=== PATIENT | male | born 1985 | race Caucasian/White ===

== ENCOUNTER 2024-07-26 02:46 | Emergency (ER) | payer MEDICAID, SELFPAY ==
[2024-07-26 02:50] VITALS: BP 121/82; PULSE 110; TEMP 36.7; O2SAT 100; BMI 25.8
--- NOTE | 2024-07-26 03:01 | ED_ITS ---
HPI - Male Genitourinary General Chief complaint: Urogenital-Male Stated complaint: R TESTICLE SWOLLEN Time Seen by Provider: 07/26/24 02:55 Source: patient Mode of arrival: Wheelchair Limitations: no limitations History of Present Illness HPI Narrative: states past history of epididymitis. Presents with right tetes pain and swelling for 24 hours. states pain and swelling are worse. No fever, abdominal pain or na usea. No urinary symptoms Related Data Home Medications ?Medication ?Instructions ?Recorded ?Confirmed No Known Home Medications 07/26/24 07/26/24 Allergies Allergy/AdvReac Type Severity Reaction Status Date / Time No Known Drug Allergies Allergy Verified 07/26/24 03:01 Review of Systems ROS Status of ROS 10 or more systems reviewed and unremark able except as noted in history and below Exam Constitutional Vital Signs, click to edit/add: Last Vital Signs Temp 98.1 F 07/26/24 02:50 Pulse 110 H 07/26/24 02:50 Resp 18 07/26/24 02:50 BP 121/82 07/26/24 02:50 Pulse Ox 100 07/26/24 02:50 O2 Del Method Room Air 07/26/24 02:50 Common normals: no apparent distress, average body habitus, oriented x3, no limitations, healthy appearing, alert and well nourished [facility] Common normals: normocephalic and head/scalp atraumatic Respiratory Common normals: normal respiratory effort, no retractions, no use of accessory muscles and clear to auscultation bilaterally Cardio Common normals: regular rate, regular rhythm, S1 normal heart sound and S2 normal heart sound GI Common normals: Normal to inspection, nondistended, normoactive bowel sounds present, soft to palpation and non-tender Other: right tetes swollen and tender. Normal color Extremity Common normals: normal to inspection and full ROM Neuro Common normals: oriented x3, CN's II-XII intact bilaterally, moves all extremities, no focal motor deficits and no sensory deficits noted Psych Appearance: grossly normal Course Vital Signs Vital signs: Vital Signs Temperature 98.1 F 07/26/24 02:50 Pulse Rate 110 H 07/26/24 02:50 Respiratory Rate 18 07/26/24 02:50 Blood Pressure 121/82 07/26/24 02:50 Pulse Oximetry 100 07/26/24 02:50 Oxygen Delivery Method Room Air 07/26/24 02:50 Temperature 98.1 F 07/26/24 02:50 Pulse Rate 110 H 07/26/24 02:50 Respiratory Rate 18 07/26/24 02:50 Blood Pressure 121/82 07/26/24 02:50 Pulse Oximetry 100 07/26/24 02:50 Oxygen Delivery Method Room Air 07/26/24 02:50 MDM - Male Genitourinary MDM Narrative Medical decision making narrative: patient presents with 24 hour onset of swelling right testes. States he has had epididymitis 3 times before and believes he has it again. States he is not sexually active. No fever or abdominal pain. Right tetes enlarged and tender. UA clear. US with findings or orchitis. Patient informed of the diagnosis. Will refer to Urology for an opinion due to atypical recurrence of infection. Prescribed cipro and doxy Lab Data Labs: Lab Results 07/26/24 Range/Units 04:19 Urine Color Lt. yellow (YELLOW) Urine Clarity Clear (CLEAR) Urine pH 7.0 (5.0-9.0) Ur Specific [place] 1.010 (1.005-1.025) Urine Protein Negative (NEG/TRACE) mg/dL Urine Glucose (UA) Negative (NEGATIVE) mg/dL Urine Ketones Negative (NEGATIVE) mg/dL Urine Occult Blood Trace-i (NEGATIVE) Urine Nitrite Negative (NEGATIVE) Urine Bilirubin Negative (NEGATIVE) Urine Urobilinogen 0.2 (0.2-1.0) EU/dL Ur Leukocyte Esterase Small A (NEGATIVE) Urine RBC 0-2 (0-2) #/HPF Urine WBC 20-50 A (NONE SEEN) #/HPF Ur Squamous Epith Cells None seen (NONE/RARE) #/LPF Urine Crystals None seen (None Seen) #/HPF Urine Bacteria Trace A (NONE SEEN) #/HPF Urine Casts None seen (NONE SEEN) #/LPF Urine Mucus None seen (NONE SEEN) Ur Culture Indicated? [place] [place] Discharge Chief Complaint: Urogenital-Male Clinical Impression: Acute orchitis Patient Disposition: Home, Self-Care Prescriptions / Home Meds: No Action No Known Home Medications Print Language: Gu[place]ian Instructions: Orchitis (ED) Additional Instructions: follow up with Urology Referrals: Physician,Non-Staff, [Primary Care Provider] - 1 week Juan Carlos Townsend MD [Physician] - 1 week
--- NOTE | 2024-07-26 03:11 | PC.NURSE ---
Patient with scrotal/ testicular pain and swelling x1 day He states he has had Epididymitis 3 times in the past, all three times were not related to positive STD tests he mentions. He states that he has had negative STD tests in the past month
--- NOTE | 2024-07-26 04:24 | PC.NURSE ---
Urine specimen collected and sent to lab. Patient states his pain is getting much worse. He says he did not take an Advil before he left home because I thought yall would have at least given me a Tylenol by now . Dr. Ashby will be notified.
[2024-07-26 04:30] LABS: Bilirubin Urine NEGATIVE (NEGATIVE); Blood Urine TRACE-I (NEGATIVE); Clarity Urine CLEAR (CLEAR); Color Urine LT. YELLOW (YELLOW); Glucose Urine UA NEGATIVE (NEGATIVE); Ketones Urine NEGATIVE (NEGATIVE); Leukocyte Esterase Urine SMALL (NEGATIVE); Nitrite Urine NEGATIVE (NEGATIVE); Protein Urine NEGATIVE (NEG/TRACE); Urobilinogen Urine 0.2 EU/dL (0.2-1.0)
[2024-07-26 04:37] LABS: Bacteria Urine TRACE #/HPF (NONE SEEN); Cast Seen? NONE SEEN #/LPF (NONE SEEN); Crystals Seen? None Seen #/HPF (None Seen); Mucus Urine NONE SEEN (NONE SEEN); RBC Urine 0-2 #/HPF (0-2); Squamous Epithelial Cell Urine NONE SEEN #/LPF (NONE/RARE); Urine Culture Indicated YES-FRMC; WBC Urine 20-50 #/HPF (NONE SEEN)
[2024-07-26] MEDS: IBUPROFEN 400 MG TABLET 800 MG PO (04:43)
[2024-07-26] MEDS: DOXYCYCLINE MONOHYDRATE 100 MG CAPSULE PO (06:33)
[2024-07-26] MEDS: CIPROFLOXACIN HCL 500 MG TABLET PO (06:33)
== END 2024-07-26 06:39 | disposition home or self-care (01) ==
PROVIDERS: Emergency Provider Internal Medicine
DX: N45.2 Orchitis (principal)
CPT/HCPCS: 76870; 81001; 87086; 93976; 99284